=== PATIENT | male | born 1950 | race Caucasian/White ===

== ENCOUNTER → 2023-04-22 | Outpatient (CLI) | payer MEDICARE | END | disposition home or self-care (01) | LOC: RESCLI 08:22 | PROVIDERS: ATTEND Internal Medicine | DX: E11.22 Type 2 diabetes mellitus with diabetic chronic kidney disease (principal); I12.9 Hypertensive chronic kidney disease with stage 1 through stage 4 chronic kidney disease, or unspecified chronic kidney disease; N18.9 Chronic kidney disease, unspecified; E78.2 Mixed hyperlipidemia; E03.9 Hypothyroidism, unspecified; E78.5 Hyperlipidemia, unspecified; M62.838 Other muscle spasm; Z79.82 Long term (current) use of aspirin; Z79.899 Other long term (current) drug therapy; Z88.8 Allergy status to other drugs, medicaments and biological substances ==